=== PATIENT | female | born 1995 | race Caucasian/White ===

== ENCOUNTER 2017-01-12 17:06 | Emergency (ER) | payer BC ==
[2017-01-12] MEDS ORDERED: METHYLPREDNISOLONE ACETATE 80 MG/ML VIAL IM ONE (17:48)
--- NOTE | 2017-01-12 17:50 | ERNOTE ---
[facility] Date of Service: 01/12/17 Presenting Symptoms: other - sore throat Time Seen by Provider: 01/12/17 17:39 Source: patient Exam Limitations: no limitations - Immun/Allergies/Home Medications Immunizations: IMMUNIZATION HX Immunizations Up to Date Yes History of Influenza Vaccine Yes Hx Pneumococcal Vaccination Yes Allergies/Adverse Reactions: Allergies Allergy/AdvReac Type Severity Reaction Status Date / Time No Known Allergies Allergy Unverified 01/12/17 17:28 Home Medications: HOME MEDICATIONS Amox Tr/Potassium Clavulanate [Augmentin 875-125 Tablet] 875 mg PO Q12H #20 tab 01/12/17 [Last Taken Unknown] Norethindrone AC-Eth Estradiol [Junel] 1 each PO DAILY 01/12/17 [Last Taken Unknown] predniSONE [Prednisone] 3 tab PO DAILY #9 tab 01/12/17 [Last Taken Unknown] - History of Present Illness Narrative: Pt. comes in with c/o sore throat for three days with fever. Pt. states that eating and drinking exacerbates the pain and nothing alleviates the pain. Pt. denies any sinus congestion, rhinorrhea, cough, CP, or SOB. Pt. does state that the area under her B upper 1st and second ribs are tender with palpation. Severity: Present: moderate ENT Location: Present: throat Review of Systems - Review of Systems Constitutional: Present: fever, chills, fatigue, malaise EYE: Present: no symptoms reported ENT: Present: ear pain, sore throat. Absent: ear discharge, nose congestion, nasal drainage Respiratory: Present: no symptoms reported. Absent: shortness of breath, cough , wheezing Cardiology: Present: no symptoms reported. Absent: chest pain, palpitations, edema Gastrointestinal/Abdominal: Present: no symptoms reported. Absent: nausea, vomiting, diarrhea Genitourinary: Present: no symptoms reported. Absent: frequency, decreased urinary output Musculoskeletal: Present: no symptoms reported. Absent: back pain, joint pain Skin: Present: no symptoms reported. Absent: rash, change in color, change in hair/nails Neurological: Present: no symptoms reported. Absent: headache, dizziness/light- headedness, numbness, tingling All Other Systems: All systems neg except as marked - Patient's Past Medical History Patient History - Medical: No pertinent hx Patient History - Cardiac/Respiratory: No pertinent hx Patient History - Cancer: No Hx of Cancer Patient History - Surgical Procedures: Other Patient History - Other: None LMP (females 10-50): 1 month - Social History Living Situations: home Psych History: No pertinent hx Smoking Status: Never smoker Alcohol Use: none Drug Use: none - Immunizations Immunizations Up to Date: Yes Hx Pneumococcal Vaccination: Yes History of Influenza Vaccine: Yes Physical Exam - Physical Exam General Appearance: Present: wd/wn, alert, no apparent distress Head Exam: Present: normal inspection, no evidence of injury Eye Exam: Normal inspection: bilateral, PERRL: bilateral, EOMI: bilateral Ears, Nose, Throat: Present: normal except -, pharyngeal erythema, pharyngeal swelling, tonsillar exudate - white. Absent: nasal congestion Neck: Present: lymphadenopathy (R) - submandibular anterior cervicle and subclavicular, lymphadenopathy (L) - submandibular anteriorcervicle and subclavicular Respiratory: Present: no respiratory distress, normal breath sounds, no accessory muscle use, chest nontender, lungs clear Cardiovascular/Chest: Present: regular rate, rhythm, no murmur, normal peripheral pulses Gastrointestinal/Abdominal: Present: normal bowel sounds, nontender, nondistended, soft, no organomegaly Back Exam: Present: normal inspection, normal range of motion, no CVA tenderness , no vertebral tenderness Extremity Exam: Present: normal inspection, non-tender, normal range of motion, no edema Neurological Exam: Present: alert, oriented, normal mood/affect, no motor/ sensory deficits Skin Exam: Present: warm/dry, pallor ED Progress - Date and Time Seen: Date and Time: 01/12/17 19:00 As pt. illness is moderate and not just a mild cold I feel taht it needs abx treatment per the AAP guidelines for treating upper resp infections. - Results and Orders Patient's Lab Results:: I have reviewed the patient's lab results. - Vital Signs Patient's Vital Signs:: I have reviewed the patient's vital signs. Vital Signs: Vital Signs 01/12/17 17:16 Temperature 38.6 C H Pulse Rate 113 H Respiratory 16 Rate Blood Pressure 137/86 O2 Sat by Pulse 100 Oximetry - Progress/Reassessment Chief Complaint: Sore Throat Departure Clinical Impression: Pharyngitis Qualifiers: Pharyngitis/tonsillitis etiology: unspecified etiology Qualified Code(s): J02.9 - Acute pharyngitis, unspecified - Departure Disposition: Home self-care Condition: Good Instructions: Pharyngitis, [id number] Additional Instructions: PLease follow up with primary provider in 2-3 days if no improvement Referrals: Reji Worley MD [Primary Care Provider] - Prescriptions: Amox Tr/Potassium Clavulanate [Augmentin 875-125 Tablet] 875 mg PO Q12H #20 tab predniSONE [Prednisone] 3 tab PO DAILY #9 tab
[2017-01-12] MEDS ORDERED: IBUPROFEN 100 MG/5 ML BTL PO ONE ×2 (17:55→18:08)
[2017-01-12] MEDS ORDERED: METHYLPREDNISOLONE ACETATE 80 MG/ML VIAL ONE (17:59)
[2017-01-12] MEDS ORDERED: IBUPROFEN 600 MG TABLET ONE (18:07)
[2017-01-12] MEDS ORDERED: IBUPROFEN 600 MG TABLET PO ONE (18:10)
[2017-01-12 19:01] VITALS: BP 125/84
== END 2017-01-12 19:06 | disposition home or self-care (01) ==
LOC: ER 17:06
DX: J02.9 Acute pharyngitis, unspecified (principal)